=== PATIENT | female | born 1955 | race Caucasian/White ===

== ENCOUNTER 2017-11-27 09:45 | Observation (INO) ==
--- NOTE | 2017-11-27 10:01 | Emergency Department Note ---
Disposition Clinical Impression: Chest pain, Hypotension Disposition: Admitted As Inpatient Condition: Fair Forms: ED Satisfaction Letter, Work/School Release Time of Disposition: 12:01 Chest Pain HPI - General Chief Complaint: ED General Medical Stated Complaint: Chest pain for 3 days Time Seen by Provider: 11/27/17 09:50 Source: patient, other Mode of arrival: ambulatory Limitations: physical limitation (Amylase with walker) Vital Signs Reviewed: Yes Nursing Notes Reviewed: Yes - History of Present Illness HPI Narrative: Patient's been having intermittent chest pain for the past 3 days talk to her family physician or nurse practitioner who advised to come to the ER to have an EKG done to make sure she is not at risk or is having a heart attack shows nausea vomiting diaphoresis any rashes or lesions denies any blurred vision double vision loss vision numbness tingling weakness recent weight gain or weight loss Pt complaint: chest pain Onset (ago): day(s) (3) Duration: constant Onset: during rest, during exertion Pain Location: left chest Severity: moderate Severity scale (1-10): 7 Quality: aching Pain Radiation: none Improves with: nothing Worsens with: nothing Associated symptoms: Reports: nausea. Denies: vomiting, diaphoresis, dyspnea, sense of impending doom, syncope, palpitations, fever, cough, leg swelling Treatments prior to arrival chest pain: other (At seen or talked to her family physician who advised her to come to the emergency room and have an EKG done to make sure she was not having a heart attack) - Related Data Home Medications Medication Instructions Recorded Confirmed Amlodipine [Norvasc] 5 mg PO DAILY 10/31/14 06/24/17 Aspirin 81 mg PO DAILY 10/31/14 06/24/17 B Complex with Vitamin C [Vitamin 1 each PO BID 10/31/14 06/24/17 B-Complex with Vit C] Budesonide/Formoterol 160/4.5 1 puff IH BIDR 10/31/14 06/24/17 [Symbicort] Docusate [Colace] 100 mg PO BID 10/31/14 06/24/17 Escitalopram [Lexapro] 20 mg PO DAILY 10/31/14 06/24/17 Furosemide [Lasix] 40 mg PO BID 10/31/14 06/24/17 Gabapentin [Neurontin] 800 mg PO QID 10/31/14 06/24/17 Losartan [Cozaar] 50 mg PO DAILY 10/31/14 06/24/17 Meclizine [Antivert] 25 mg PO TID 10/31/14 06/24/17 Melatonin 5 mg PO HS 10/31/14 06/24/17 Metformin HCl [Fortamet] 1,000 mg PO BID 10/31/14 12/18/16 Quetiapine Fumarate [SEROquel] 100 mg PO HS 10/31/14 06/24/17 Ranitidine HCl [Zantac] 150 mg PO BID 10/31/14 06/24/17 Simvastatin [Zocor] 20 mg PO HS 10/31/14 06/24/17 Trazodone HCl [Oleptro ER] 200 mg PO HS 10/31/14 06/24/17 Zolpidem [Ambien] 10 mg PO HS 10/31/14 06/24/17 Ascorbic Acid [Vitamin C] 500 mg PO BID 12/23/14 06/24/17 Calcium Carbonate 600 mg PO BID 12/23/14 06/24/17 Cyanocobalamin (Vitamin B-12) 1,000 mcg PO DAILY 12/23/14 06/24/17 [Vitamin B-12] Insulin ASPART [NovoLOG] 15 - 20 unit SQ TID 12/23/14 06/24/17 Insulin Glargine,Hum.rec.anlog 60 unit SQ HS 12/23/14 06/24/17 [Lantus Solostar] Nystatin Cream [Mycostatin Cream] 1 appl TP BID PRN 12/23/14 12/18/16 [place] Oil/[place]-3 Fatty Acids 2 each PO TID 12/23/14 06/24/17 [Fish Oil 500 mg Softgel] Trospium Chloride 2 tab PO DAILY 12/23/14 06/24/17 Vitamin D3/Folic Acid [Ortho D 1 each PO DAILY 12/23/14 06/24/17 3,775 Unit-1 mg Cap] HYDROcodone/Acet 5/325 mg [[place] 1 tab PO Q4H 09/19/16 06/24/17 5-325 mg] Tizanidine HCl [Zanaflex] 2 mg PO TID 09/19/16 06/24/17 Diphenoxylate/Atropine [Lomotil 1 tab PO 04/09/17 2.5 mg/0.025 mg] Ipratropium/Albuterol Sulfate 4 gm IH 04/09/17 [Combivent Respimat Inhal [place]] Multivitamin [Multivitamins] 1 each PO 04/09/17 Potassium Chloride [Klor-Con 10] 10 meq PO 04/09/17 Previous Rx's Medication Instructions Recorded Albuterol Sulfate [Albuterol 2 puff IH QID #1 inhaler 01/20/16 Inhaler] Allergies Allergy/AdvReac Type Severity Reaction Status Date / Time Sulfa (Sulfonamide Allergy Hives Verified 06/24/17 09:22 Antibiotics) All systems ED: reviewed and negative except as stated. Review of Systems: As Per HPI Constitutional: Denies: fever, chills, weakness Eyes: Denies: eye pain, eye discharge ENT ED: Denies: ear pain, throat pain, dental pain Cardiovascular: Reports: chest pain. Denies: palpitations, paroxysmal nocturnal dyspnea Respiratory: Denies: cough, dyspnea Gastrointestinal: Denies: abdominal pain, nausea Genitourinary: Denies: urgency Musculoskeletal: Denies: back pain Integumentary: Denies: rash, abrasion Neurological: Denies: headache Psychiatric: Denies: anxiety Endocrine: Denies: fatigue Hematological/Lymphatic: Denies: easy bleeding Allergic/Immunologic: Denies: facial swelling Chest Pain PMH - Past Medical History Medical history: Reports: cardiomyopathy, CHF, diabetes, hypertension, migraine Surgical history: Reports: non-contributory, cholecystectomy, hysterectomy, orthopedic, other, other Psychiatric history: Reports: bipolar 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 history: Reports: no 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 history, bilateral tubal ligation - Social History Smoking Status: Never smoker Alcohol use: Reports: none Drug use: Reports: none Physical Exam - General Limitations: physical limitation (Amylase with the use of a walker markedly kyphotic) General appearance: alert, in no apparent distress, anxious, obese - Head Head exam: atraumatic, normocephalic, normal inspection - Eye Eye exam: Present: normal appearance, PERRL, EOMI - ENT ENT exam: normal exam, normal oropharynx, mucous membranes moist, TM's normal bilaterally, normal external ear exam - Neck Neck exam: Present: normal inspection, full ROM, trachea midline - Chest Chest inspection: Present: normal inspection, symmetric chest wall rise - Respiratory Respiratory exam: Present: normal lung sounds bilaterally - Cardiovascular Cardiovascular exam: Present: regular rate, normal rhythm, normal heart sounds - Abdominal Exam Abdominal exam: Present: soft, Non-Tender, normal bowel sounds. Absent: mass, pulsatile mass - Extremities Exam Extremities exam: Present: normal inspection, full ROM, normal capillary refill. Absent: tenderness, pedal edema, joint swelling, calf tenderness - Expanded Lower Extremity Exam Neurovascular/Tendon exam: Present: normal capillary refill, normal fine/light touch Gait: observed and normal - Back Exam Back exam: Present: normal inspection, full ROM. Absent: muscle spasm - Neurological Exam Neurological exam: Present: alert, oriented X3, CN II-XII intact, normal gait - Psychiatric Psychiatric exam: Present: normal affect, normal mood - Skin Skin exam: Present: warm, dry, intact, normal color Course Course Narrative: Patient seen and examined laboratory data was done patient had slightly elevated d-dimer result we went ahead PE study which could account for some of her weakness or breath patient has had some intermittent hypotension but it resolved spontaneously on its own itself and related to her heart rate as result spoke with Dr. Castro will recommend observation to see if this is related to medications or possibly of underlying cardiac disease Vital Signs Temperature 97.8 F 11/27/17 09:46 Pulse Rate 61 11/27/17 09:46 Respiratory Rate 21 11/27/17 09:46 Blood Pressure 150/64 11/27/17 09:46 O2 Sat by Pulse Oximetry 94 11/27/17 09:46 Temperature 97.8 F 11/27/17 09:46 Pulse Rate 70 11/27/17 11:27 Respiratory Rate 16 11/27/17 11:27 Blood Pressure 87/43 11/27/17 11:27 O2 Sat by Pulse Oximetry 94 11/27/17 11:27 Oxygen Delivery Oxygen Delivery Room Air Chest Pain - Differential Diagnosis Likely: chest pain - Medical Records Medical records reviewed: Yes I reviewed the patient's medical records. - Lab Data Lab results reviewed: Yes I reviewed the patient's lab results. Result diagrams: 11/27/17 10:07 11/27/17 10:07 Lab Results 11/27/17 11/27/17 11/27/17 Range/Units 10:07 10:07 10:07 WBC 9.2 (4.3-11.1) K/mcL RBC 4.16 (3.82-4.97) M/mcL Hgb 12.2 (11.5-15.4) g/dL Hct 36.7 (35.3-44.9) % MCV 88.2 (83.0-100.0) fL MCH 29.3 (28.0-33.3) pg MCHC 33.2 (31.6-35.5) g/dL RDW 13.5 (11.5-14.5) % Plt Count 201 (140-400) K/mcL MPV 10.4 (9.4-12.4) fL Immature Gran % 0.4 (0-4) % Seg Neutrophils % 65.7 % Lymphocytes % 25.9 % Monocytes % 5.3 % Eosinophils % 2.3 % Basophils % 0.4 % Neutrophils # 6.1 (1.6-8.9) K/mcL Lymphocytes # 2.4 (0.6-4.6) K/mcL Monocytes # 0.5 (0.0-1.3) K/mcL Eosinophils # 0.2 (0.0-0.6) K/mcL Basophils # 0.0 (0.0-0.2) K/mcL PT 12.0 (9.4-12.1) Seconds INR 1.1 APTT 31.4 (26.0-36.0) Seconds D-Dimer 540 H (0-500) ng/mLFEU Sodium 141 (136-145) mEq/L Potassium 3.9 (3.5-5.1) mEq/L Chloride 103 (98-107) mEq/L Carbon Dioxide 30 H (23-29) mEq/L BUN 11 (8-23) mg/dL Creatinine 0.85 (0.60-1.20) mg/dL Est GFR ( Amer) > 60 (> 60) Est GFR (Non-Af Amer) > 60 (> 60) BUN/Creatinine Ratio 13 (6-26) Glucose 153 H (70-105) mg/dL Calculated Osmolality 294 (280-300) Calcium 9.2 (8.6-10.3) mg/dL Total Bilirubin 0.6 (0.3-1.0) mg/dL AST 17 (13-39) Units/L ALT 21 (7-52) Units/L Alkaline Phosphatase 68 (34-104) Units/L Troponin I < 0.03 (< 0.04) ng/mL Serum Total Protein 6.5 (6.4-8.9) g/dL Albumin 3.9 (3.5-5.7) g/dL Globulin 2.6 (2.4-3.5) g/dL Albumin/Globulin Ratio 1.5 (1.1-2.2) - Radiology Data Radiology results reviewed: Yes I reviewed the patient's radiology results. Impressions Chest X-Ray 11/27/17 09:51 IMPRESSION: Stable cardiomegaly. No acute pulmonary process. D/ / Kandy Talamantes MD / Kandy Talamantes MD Interpreting Provider: Kandy Talamantes MD Chest CTA 11/27/17 11:02 IMPRESSION: No evidence of pulmonary embolism or acute pulmonary abnormality. Mild cardiomegaly. D/ / Isaac Fisher MD / Isaac Fisher MD Interpreting Provider: Isaac Fisher MD - EKG Data EKG attestation: Yes I reviewed and interpreted this EKG. EKG results narrative: Sinus bradycardia rate 54-year-old 47 years 92 QT 431 axis Heart Score - Score History: Slightly Suspicious EKG: Normal Age: 45-65 Risk Factors: 1-2 risk factors Troponin: Less than normal limit HEART Score Total: 2 Critical Care Time Critical Care Time: No
[2017-11-27 10:11] LABS: Basophils % 0.4 %; Eosinophils # 0.2 K/mcL (0.0-0.6); Eosinophils % 2.3 %; Hematocrit 36.7 % (35.3-44.9); Hemoglobin 12.2 g/dL (11.5-15.4); Immature Granulocytes % 0.4 % (0-4); Lymphocytes # 2.4 K/mcL (0.6-4.6); Lymphocytes % 25.9 %; Mean Corpuscular HGB Conc 33.2 g/dL (31.6-35.5); Mean Corpuscular Hemoglobin 29.3 pg (28.0-33.3); Mean Corpuscular Volume 88.2 fL (83.0-100.0); Mean Platelet Volume 10.4 fL (9.4-12.4); Monocytes # 0.5 K/mcL (0.0-1.3); Monocytes % 5.3 %; Neutrophils # 6.1 K/mcL (1.6-8.9); Platelet Count 201 K/mcL (140-400); Red Blood Count 4.16 M/mcL (3.82-4.97); Red Cell Distribution Width 13.5 % (11.5-14.5); Segmented Neutrophils % 65.7 %
[2017-11-27 10:22] LABS: INR 1.1
[2017-11-27 10:25] LABS: Activated Partial Thrombo Time 31.4 Seconds (26.0-36.0)
[2017-11-27 10:31] LABS: Troponin I < 0.03 ng/mL (< 0.04)
[2017-11-27 10:32] LABS: Alanine Aminotransferase 21 Units/L (7-52); Albumin 3.9 g/dL (3.5-5.7); Albumin/Globulin Ratio 1.5 (1.1-2.2); Alkaline Phosphatase 68 Units/L (34-104); Aspartate Amino Transferase 17 Units/L (13-39); BUN/Creatinine Ratio 13 (6-26); Bilirubin,Total 0.6 mg/dL (0.3-1.0); Blood Urea Nitrogen 11 mg/dL (8-23); Calcium 9.2 mg/dL (8.6-10.3); Carbon Dioxide 30 mEq/L (23-29); Chloride 103 mEq/L (98-107); Globulin 2.6 g/dL (2.4-3.5); Glucose 153 mg/dL (70-105); Osmolality,Calculated 294 (280-300); Potassium 3.9 mEq/L (3.5-5.1); Sodium 141 mEq/L (136-145); Total Protein 6.5 g/dL (6.4-8.9); eGFR For Non-African Americans > 60 (> 60)
[2017-11-27] MEDS ORDERED: Isovue-370 500 ML INFUS..BTL IV ONE ×2 (11:02→14:43)
[2017-11-27] MEDS ORDERED: *HR* HYDROcodone/Acet 5/325 mg TABLET PO SCH (14:43)
[2017-11-27] MEDS ORDERED: Gabapentin 400 MG CAPSULE PO SCH (14:43)
[2017-11-27] MEDS ORDERED: 0.9 % Sodium Chloride 1,000 ML IVC SCH (14:43)
[2017-11-27] MEDS ORDERED: Dextrose Gel 15 GM/37.5 ML TUBE PO PRN ×2 (14:43)
[2017-11-27] MEDS ORDERED: D5% in Water 1,000 ML IVC PRN (14:43)
[2017-11-27] MEDS ORDERED: *HR* Dextrose 50 % in Water (Syg) 50 ML SYRINGE IVP PRN (14:43)
[2017-11-27] MEDS ORDERED: Naloxone 0.4 MG/ML INJ IVP PRN (14:43)
[2017-11-27] MEDS ORDERED: FATTY ACIDS PO SCH (15:00)
[2017-11-27] MEDS ORDERED: [UNRECOGNIZED DRUG - OTHER] PO SCH (15:00)
[2017-11-27] MEDS ORDERED: SALMON OIL PO SCH (15:00)
[2017-11-27] MEDS ORDERED: OMEGA PO SCH (15:00)
[2017-11-27] MEDS: *HR* HYDROcodone/Acet 5/325 mg TABLET PO PRN (15:45)
--- NOTE | 2017-11-27 15:48 | Internal Med History&Physical ---
Date of Encounter: 11/27/17 Time of Encounter: 15:15 Assessment and Plan (1) Chest pain Current visit: Yes Status: Acute Suspect muscle skeletal origin. Repeat cardiac enzymes have been ordered. She will be given naproxen for chest wall pain. Qualifiers: Chest pain type: precordial pain Qualified Code(s): R07.2 - Precordial pain (2) Dyspnea on exertion Current visit: Yes Status: Acute Room air oximetry will be checked on 6 minute walk. BN peptide has been ordered. (3) Hypotension Current visit: Yes Status: Acute History of hypertension. Blood pressure was low in emergency room at 87/43. Cozaar and amlodipine will be held and blood pressure monitored. Qualifiers: Hypotension type: unspecified hypotension type Qualified Code(s): I95.9 - Hypotension, unspecified Internal Medicine - H&P: HPI Chief complaint: Dyspnea and chest pain Admitted From: Emergency Dept Plans for Post Hospital Care: Home History of present illness: Ms. Becker is a 62 year old female who came to emergency room stating she had onset of chest discomfort November 23 while at leisure. She describes the discomfort as a sharp pain in her left chest that radiated to her back. Her was also discomfort in her left lower neck and shoulder area. The discomfort was unrelated to activity or position. She did not take medication for the episodes. She reports the duration was approximately 2 minutes with frequency averaging 1 per hour. She had dyspnea on exertion but this is more chronic than acute. The pain seemed to be worsening today so she contacted her PCP office and was directed to come to emergency room. She was admitted to [facility] for ongoing care needs. She denies previous similar episodes of pain. Cardiovascular history is significant for hypertension. She denies KS, document heart failure, DVT or pulmonary embolus. Past Med Surg Social Fam HX - Past Medical History Medical history: cardiomyopathy, CHF, diabetes, hypertension, migraine Additional medical history: low back pain and arthritis per patient Psychiatric history: bipolar - Past Surgical History Surgical History: non-contributory, cholecystectomy, hysterectomy, orthopedic, other, other Additional surgical history: tubal ligation - Social History Smoking Status: Never smoker Smokeless Tobacco Status: No Alcohol use: none Drug use: none Internal Medicine - H&P: Meds Amlodipine [Norvasc] 5 mg PO DAILY 10/31/14 [History] Aspirin 81 mg PO DAILY 10/31/14 [History] B Complex with Vitamin C [Vitamin B-Complex with Vit C] 1 each PO BID 10/31/14 [ History] Budesonide/Formoterol 160/4.5 [Symbicort] 1 puff IH BIDR 10/31/14 [History] Docusate [Colace] 100 mg PO BID 10/31/14 [History] Escitalopram [Lexapro] 20 mg PO DAILY 10/31/14 [History] Furosemide [Lasix] 40 mg PO BID 10/31/14 [History] Gabapentin [Neurontin] 800 mg PO QID 10/31/14 [History] Losartan [Cozaar] 50 mg PO DAILY 10/31/14 [History] Meclizine [Antivert] 25 mg PO TID 10/31/14 [History] Melatonin 5 mg PO HS 10/31/14 [History] Metformin HCl [Fortamet] 1,000 mg PO BID 10/31/14 [History] Quetiapine Fumarate [SEROquel] 100 mg PO HS 10/31/14 [History] Ranitidine HCl [Zantac] 150 mg PO BID 10/31/14 [History] Simvastatin [Zocor] 20 mg PO HS 10/31/14 [History] Trazodone HCl [Oleptro ER] 200 mg PO HS 10/31/14 [History] Zolpidem [Ambien] 10 mg PO HS 10/31/14 [History] Ascorbic Acid [Vitamin C] 500 mg PO BID 12/23/14 [History] Calcium Carbonate 600 mg PO BID 12/23/14 [History] Cyanocobalamin (Vitamin B-12) [Vitamin B-12] 1,000 mcg PO DAILY 12/23/14 [ History] Insulin ASPART [NovoLOG] 15 unit SQ TID 12/23/14 [History] Insulin Glargine,Hum.rec.anlog [Lantus Solostar] 60 unit SQ HS 12/23/14 [History ] Nystatin Cream [Mycostatin Cream] 1 appl TP BID PRN 12/23/14 [History] [place] Oil/[place]-3 Fatty Acids [Fish Oil 500 mg Softgel] 2 each PO TID 12/23/14 [History] Trospium Chloride 2 tab PO DAILY 12/23/14 [History] Vitamin D3/Folic Acid [Ortho D 3,775 Unit-1 mg Cap] 1 each PO DAILY 12/23/14 [ History] Albuterol Sulfate [Albuterol Inhaler] 2 puff IH QID #1 inhaler 01/20/16 [Rx] HYDROcodone/Acet 5/325 mg [[place] 5-325 mg] 1 tab PO TID 09/19/16 [History] Tizanidine HCl [Zanaflex] 4 mg PO TID 09/19/16 [History] Diphenoxylate/Atropine [Lomotil 2.5 mg/0.025 mg] 1 tab PO BID 04/09/17 [History] Ipratropium/Albuterol Sulfate [Combivent Respimat Inhal [place]] 4 gm IH Q6HR 03/26 [History] Multivitamin [Multivitamins] 1 each PO DAILY 04/09/17 [History] Potassium Chloride [Klor-Con 10] 20 meq PO DAILY 04/09/17 [History] Blood-Glucose Meter [Relion All-in-One] 1 each MC 11/27/17 [History] Mirabegron [Myrbetriq] 25 mg PO DAILY 11/27/17 [History] Ondansetron HCl [Zofran] 4 mg PO TID PRN 11/27/17 [History] 3 Allergy/AdvReac Type Severity Reaction Status Date / Time Sulfa (Sulfonamide Allergy Hives Verified 06/24/17 09:22 Antibiotics) All Systems PM: A 10-system review of systems was performed and is negative for pertinent findings except as documented above in the HPI. Review of systems: Gen.: She states her weight has been stable the past few months Cardiovascular: As per history of present illness Respiratory: She has MURIEL and uses BiPAP. She is a lifelong nonsmoker but was told at one time she had COPD. She had oxygen in the home at one time but states she does not now qualify for it. GI: She has had cholecystectomy. She denies disorders of her liver or exocrine pancreas : She denies hematuria dysuria or kidney stones Neurologic: She has had frequent headaches for 3 months. She denies large distribution strokes or seizures. Endocrine: She was diagnosed with DM 2 approximately 2005. She has hyperlipidemia but denies thyroid disease. Hematology/oncology: She denies blood disorders cancers or anemia Psychiatric: She has depression and follows with mental health clinic. She denies other mental health diagnoses. Muscle skeletal: She has DJD but denies gout or other bone joint or muscle disorders. - Constitutional Vitals: Temp Pulse Resp BP Pulse Ox 98.7 F 64 20 107/64 95 11/27/17 13:51 11/27/17 13:51 11/27/17 13:51 11/27/17 13:51 11/27/17 13:51 Exam: Gen.: She is a well-developed morbidly obese female lying in bed who appears in no acute distress HEENT: Head is atraumatic and normocephalic. Eyes: EOMI. There is no scleral icterus. Mouth: Mucosa is moist. Neck: Supple and nontender. There is no thyromegaly or adenopathy noted. Heart: Regular without murmurs gallops or ectopics Lungs: No wheezes or crackles are heard. Chest: She is tender in her left chest wall stating "that is the pain" on compression. Abdomen: She has a large pannus. No masses or guarding are noted. Extremities: There is no cyanosis edema or clubbing noted. Dorsalis pedis and posttibial pulses are trace palpable bilaterally. Neurologic: Mental status: She is talkative and a good historian. Cranial nerves: Smile is symmetric. Forehead wrinkles bilaterally. Tongue protrudes midline. EOMI. Motor: There is no pronator drift. Cerebellar: Finger to nose is intact bilaterally. Skin: Warm and dry Internal Med - H&P Results - Labs CBC & Chem 7: 11/27/17 10:07 11/27/17 10:07
[2017-11-27] MEDS ORDERED: Furosemide 40 MG TABLET PO SCH (17:00)
[2017-11-27] MEDS: tiZANidine 4 MG TABLET PO SCH ×2 (17:02→21:13)
[2017-11-27] MEDS: Insulin LISPRO 300 UNITS/3 ML VIAL SQ SCH ×2 (17:03→17:04)
--- NOTE | 2017-11-27 17:05 | Electrocardiograph Report ---
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
[2017-11-27] MEDS: Budesonide/Formoterol 160/4.5 1 PUFF INH IH SCH (20:50)
[2017-11-27] MEDS ORDERED: Melatonin 3 MG TABLET PO SCH (21:00)
[2017-11-27] MEDS ORDERED: Insulin DETEMIR 100 UNIT/ML X5UNITS SQ SCH (21:00)
[2017-11-27] MEDS ORDERED: traZODone 50 MG TABLET PO SCH (21:00)
[2017-11-27] MEDS: Ascorbic Acid 500 MG TABLET PO SCH (21:12)
[2017-11-27] MEDS: Vitamin B Complex/Vit C/Vit E 1 EACH TABLET PO SCH (21:13)
[2017-11-27] MEDS: Famotidine 20 MG TABLET PO SCH (21:13)
[2017-11-28 05:29] LABS: Prothrombin Time 11.7 Seconds (9.4-12.1)
[2017-11-28 05:31] LABS: Activated Partial Thrombo Time 32.1 Seconds (26.0-36.0)
[2017-11-28 05:37] LABS: Chol/HDL Ratio 3.2 (0-4.9)
[2017-11-28 05:38] LABS: BUN/Creatinine Ratio 14 (6-26); Blood Urea Nitrogen 16 mg/dL (8-23); Calcium 9.2 mg/dL (8.6-10.3); Carbon Dioxide 32 mEq/L (23-29); Chloride 102 mEq/L (98-107); Glucose 99 mg/dL (70-105); Magnesium 1.8 mg/dL (1.6-2.6); Osmolality,Calculated 295 (280-300); Potassium 3.5 mEq/L (3.5-5.1); Sodium 142 mEq/L (136-145); eGFR For Non-African Americans 49 (> 60)
[2017-11-28 05:40] LABS: Troponin I < 0.03 ng/mL (< 0.04)
[2017-11-28] MEDS: Insulin LISPRO 300 UNITS/3 ML VIAL SQ SCH ×4 (08:21→12:33)
[2017-11-28] MEDS: Ascorbic Acid 500 MG TABLET PO SCH (08:36)
[2017-11-28] MEDS: Famotidine 20 MG TABLET PO SCH (08:36)
[2017-11-28] MEDS: Vitamin B Complex/Vit C/Vit E 1 EACH TABLET PO SCH (08:36)
[2017-11-28] MEDS: tiZANidine 4 MG TABLET PO SCH ×2 (08:36→14:49)
--- NOTE | 2017-11-28 08:51 | Discharge Summary ---
Date of Encounter: 11/28/17 Time of Encounter: 08:42 - Discharge Diagnosis (1) Chest pain Priority: Primary Status: Acute Qualifiers: Chest pain type: precordial pain Qualified Code(s): R07.2 - Precordial pain (2) Dyspnea on exertion Priority: Secondary Status: Acute (3) Hypotension Priority: Secondary Status: Acute Qualifiers: Hypotension type: unspecified hypotension type Qualified Code(s): I95.9 - Hypotension, unspecified Hospital course: Ms. Becker is a 62 year old female who came to emergency room stating she had onset of chest discomfort November 23 while at leisure. She describes the discomfort as a sharp pain in her left chest that radiated to her back. Her was also discomfort in her left lower neck and shoulder area. The discomfort was unrelated to activity or position. She did not take medication for the episodes. She reports the duration was approximately 2 minutes with frequency averaging 1 per hour. She had dyspnea on exertion but this is more chronic than acute. The pain seemed to be worsening today so she contacted her PCP office and was directed to come to emergency room. She was admitted to [facility] for ongoing care needs. Initial orders were written by the emergency room physician. I saw her on November 27 and performed the history and physical. When I saw her I felt the chest pain was likely to be of chest wall origin. She was given naproxen and the pain had improved by the following day. Repeat cardiac enzymes showed no evidence of myocardial damage. I told her she could continue OTC ibuprofen she has at home for another 1-2 days. Creatinine rayna to 1.12 on November 28. I told her to limit the NSAID use to no more than 2 days. Her PCP can monitor renal indices. Room air oximetry was ordered on 6 minute walk with report pending at time of discharge. Blood pressure was borderline low. Amlodipine will be discontinued at discharge. Her PCP can monitor and adjust medications as needed. She will be discharged home and follow with her PCP within 1 week. - Time Spent with Patient Total time spent providing and/or coordinating discharge services: - Discharge Medications Home Medications: Aspirin 81 mg PO DAILY 10/31/14 [History] B Complex with Vitamin C [Vitamin B-Complex with Vit C] 1 each PO BID 10/31/14 [ History] Budesonide/Formoterol 160/4.5 [Symbicort] 1 puff IH BIDR 08/25/15 [History] Docusate [Colace] 100 mg PO BID 10/31/14 [History] Escitalopram [Lexapro] 20 mg PO DAILY 10/31/14 [History] Furosemide [Lasix] 40 mg PO BID 10/31/14 [History] Gabapentin [Neurontin] 800 mg PO QID 10/31/14 [History] Losartan [Cozaar] 50 mg PO DAILY 10/31/14 [History] Meclizine [Antivert] 25 mg PO TID 10/31/14 [History] Melatonin 5 mg PO HS 10/31/14 [History] Metformin HCl [Fortamet] 1,000 mg PO BID 10/31/14 [History] Quetiapine Fumarate [Seroquel] 100 mg PO HS 10/31/14 [History] Ranitidine HCl [Zantac] 150 mg PO BID 10/31/14 [History] Simvastatin [Zocor] 20 mg PO HS 10/31/14 [History] Trazodone HCl [Oleptro ER] 200 mg PO HS 10/31/14 [History] Zolpidem [Ambien] 10 mg PO HS 10/31/14 [History] Ascorbic Acid [Vitamin C] 500 mg PO BID 12/23/14 [History] Calcium Carbonate 600 mg PO BID 12/23/14 [History] Cyanocobalamin (Vitamin B-12) [Vitamin B12] 1,000 mcg PO DAILY 12/23/14 [History ] Insulin ASPART [NovoLOG] 15 unit SQ TID 12/23/14 [History] Insulin Glargine,Hum.rec.anlog [Lantus Solostar] 60 unit SQ HS 12/23/14 [History ] Nystatin Cream [Mycostatin Cream] 1 appl TP BID PRN 12/23/14 [History] [place] Oil/[place]-3 Fatty Acids [Fish Oil 500 mg Softgel] 2 each PO TID 12/23/14 [History] Trospium Chloride 2 tab PO DAILY 12/23/14 [History] Vitamin D3/Folic Acid [Ortho D 3,775 Unit-1 mg Cap] 1 each PO DAILY 12/23/14 [ History] Albuterol Sulfate [Albuterol Inhaler] 2 puff IH QID #1 inhaler 11/13/16 [Rx] HYDROcodone/Acet 5/325 mg [[place] 5-325 mg] 1 tab PO TID 09/19/16 [History] Tizanidine HCl [Zanaflex] 4 mg PO TID 09/19/16 [History] Diphenoxylate/Atropine [Lomotil 2.5 mg/0.025 mg] 1 tab PO BID 04/09/17 [History] Ipratropium/Albuterol Sulfate [Combivent Respimat Inhal [place]] 4 gm IH Q6HR 03/26 [History] Multivitamin [Multivitamins] 1 each PO DAILY 04/09/17 [History] Potassium Chloride [Klor-Con 10] 20 meq PO DAILY 04/09/17 [History] Blood-Glucose Meter [Relion All-in-One] 1 each MC 11/27/17 [History] Mirabegron [Myrbetriq] 25 mg PO DAILY 11/27/17 [History] Ondansetron HCl [Zofran] 4 mg PO TID PRN 11/27/17 [History] Allergies/Adverse Reactions: 3 Allergy/AdvReac Type Severity Reaction Status Date / Time Sulfa (Sulfonamide Allergy Hives Verified 06/24/17 09:22 Antibiotics) Date of admission: 11/27/17 12:30 Primary care physician: Mehdi Parson MD - Constitutional Vitals: Temp Pulse Resp BP Pulse Ox 98.0 F 56 17 133/62 91 11/28/17 07:41 11/28/17 07:41 11/28/17 07:41 11/28/17 07:41 11/28/17 07:41 - Patient Status Disposition: Home, Self-Care Condition: Fair - Discharge Instructions Follow Up With: Mehdi Parson MD [Primary Care Provider] - 1 week - Diet and Activity Activity: resume usual activities as tolerated Diet: diabetic diet
[2017-11-28] MEDS ORDERED: Aspirin 81 MG TAB.CHEW PO SCH (09:00)
[2017-11-28] MEDS ORDERED: Cholecalciferol (D-3) 1,000 UNIT TABLET PO SCH (09:00)
[2017-11-28] MEDS ORDERED: Cyanocobalamin (B-12) 1,000 MCG TABLET PO SCH (09:00)
[2017-11-28] MEDS ORDERED: amLODIPine 5 MG TABLET PO SCH (09:00)
[2017-11-28] MEDS ORDERED: NON-FORMULARY MEDICATION 1 EACH EACH (Ipratropium/Albuterol Sulfate [Combivent Respimat In IH SCH (09:00)
[2017-11-28] MEDS ORDERED: Folic Acid 1 MG TABLET PO SCH (09:00)
[2017-11-28] MEDS: Budesonide/Formoterol 160/4.5 1 PUFF INH IH SCH (09:25)
[2017-11-28] MEDS: *HR* HYDROcodone/Acet 5/325 mg TABLET PO PRN (10:54)
[2017-11-28 12:51] VITALS: BP 121/80
[2017-11-29] MEDS ORDERED: *HR* Metformin 500 MG TABLET PO SCH ×2 (08:00→17:00)
== END 2017-11-28 15:10 | disposition home or self-care (01) ==
LOC: INPPIK 09:45 → EMEROOPIK 09:45 → INPPIK 13:01
PROVIDERS: ADMIT Internal Medicine; ATTEND Internal Medicine